=== PATIENT | female | born 1985 | race Caucasian/White ===

== ENCOUNTER → 2018-06-19 16:34 | Outpatient (CLI) | payer OTHER, SELFPAY ==
--- NOTE | 2018-06-19 16:40 | CT_ITS ---
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 2-D reformats were performed by the technologist. A radiation dose optimization technique was used for this scan. IV Contrast dosage and agent: None. COMPARISON: None FINDINGS: There is partial opacification of the right sphenoid sinus. The remaining paranasal sinuses appear clear. The mastoid air systems are well-developed bilaterally and show normal aeration. The external, middle, and inner ear structures are symmetrical and show no CT abnormality. No bony erosions, inflammatory change, or cholesteatoma. No effusion or middle ear otitis. Middle ear ossicles are preserved. The internal auditory canals are symmetrical. No developmental high riding jugular bulb or middle ear bony dehiscence. The right sigmoid dural sinus is larger than the left, not unusual, and this would not be symptomatic. CT/Orb Sella Post Fossa Ear w/o IMPRESSION: 1. Right sphenoid mild sinusitis. Otherwise negative exam. 2. No developmental high riding jugular bulb, bony dehiscence, or other abnormality seen. Individualized dose optimization techniques were used for this CT. at 0825 Reported and signed by: Antony Hewitt MD Electronically Signed: Antony Hewitt, at 8:24 EDT Tel , Service support ,
== END ==
PROVIDERS: Family Provider Family Medicine; PCP Family Medicine; Referring Provider Otolaryngology; Visit Provider Otolaryngology
DX: H93.A1 Pulsatile tinnitus, right ear (principal)
CPT/HCPCS: 70480

== ENCOUNTER 2019-09-08 04:58 | Inpatient (IN) | payer OTHER, SELFPAY ==
[2019-09-05 13:03] LABS: Probe Check PASS; Specimen Processing Control PASS
[2019-09-08] VITALS (21 sets, daily range): BP systolic 101–125; BP diastolic 55–78; PULSE 63–84; RESP 16–18; TEMP 36.1–36.8; O2SAT 96–100; BMI 43.1
[2019-09-08] MEDS: Lactated Ringers 1,000 ML 999 ML IV (05:20)
[2019-09-08 05:43] LABS: Absolute Neutrophil Count 6.8 X10^3/uL (2.0-7.7); Basophil# 0.03 X10^3/uL; Basophil% 0.3 % (0-1); Eosinophil# 0.23 X10^3/uL; Eosinophils% 2.3 % (0-5); Hematocrit 36.7 % (37-47); Hemoglobin 11.6 g/dL (12.0-15.0); Lymphocyte % 19.4 % (19-41); Mean Corp Hgb Conc 31.6 g/dL (32-36); Mean Corpuscular Hgb 26.9 pg (27.0-32.0); Mean Platelet Vol. 10.3 fl (6.2-12.0); Monocyte# 0.78 X10^3/uL; NRBC Flagged by Analyzer 0 % (0-5); Neutrophil % 69.5 % (47-70); Platelet Count 232 K/mm3 (150-450); RBC Distribution Width SD 43.1 fl (35.1-43.9); Red Blood Count 4.32 M/mm3 (4.2-5.4); White Blood Count 9.8 K/mm3 (4.4-11.0)
[2019-09-08] MEDS: Acetaminophen 500 MG Tablet 1000 MG PO ×3 (06:02→18:36)
[2019-09-08] MEDS: Lactated Ringers 1,000 ML 150 ML IV (06:30)
[2019-09-08] MEDS: Sodium Citrate/Citric Acid 30 ML UDC PO (06:59)
--- NOTE | 2019-09-08 07:11 | PCM.HPOB.BLA ---
- Problem List (1) History of delivery Status: Acute (2) 39 weeks gestation of Status: Acute History and Physical Date of Admission: 09/08/19 DATE OF SERVICE: September 03, 2019 ? PROBLEM:?History of prior section ? DIAGNOSIS:?Desires repeat section ? PAST SURGICAL HISTORY:? PAST SURGICAL HISTORY PAST SURGICAL HISTORY Procedure Laterality Date ? DEL W/ ANTE/POST CARE ? 12/29/12 ? OFFICE LEEP ? 04/25/2015 ? IRVIN 3 ? PAST MEDICAL HISTORY:? PAST MEDICAL HISTORY PAST MEDICAL HISTORY Diagnosis Date ? Abnormal Pap smear of cervix ? ? IRVIN I (cervical intraepithelial neoplasia I) 03/2013 ? Complication of anesthesia ? ? vomiting with Epidural ? History of chlamydia infection 2008 ? Miscarriage ? ? 2010 ? Pseudotumor cerebri ? ? SUBJECTIVE:?No ctx, vb, lof. Good FM. No NEGRETE, vision changes, upper abdominal pain.? ? SOCIAL HISTORY:? SOCIAL HISTORY Social History ? Tobacco Use ? Smoking status: Never Smoker ? Smokeless tobacco: Never Used Substance Use Topics ? Alcohol use: No ? Drug use: No ? Current Outpatient Medications on File Prior to Visit Medication Sig ? Breast Pump Use as directed ? Jrigsgbl-Lk-Nhf-Fe-FA ( VITAMIN) tab Take 1 tablet by mouth. ? EPINEPHrine (EPIPEN 2-JOJO) 0.3 mg/0.3 mL (1:1,000) PnIj Inject 0.3 mL intramuscularly as needed. No current facility-administered medications on file prior to visit.? ALLERGIES ALLERGIES Allergen Reactions ? Bee Sting ? Hives ? OBJECTIVE: ? VITALS:? BP 120/80 ? Wt 244 lb 6.4 oz (110.9 kg) ? LMP 10/08/2018 (Approximate) ? BMI 41.95 kg/m? ? HEENT: ?Normocephalic, atraumatic, Mucus membranes moist without lesions. ? NECK: ???Soft and Supple. ?No adenopathy , thyromegaly or bruits. ? SKIN: No lesions. ? CHEST: Clear to auscultation. ?No wheezes or rales. ?Good air exchange. ? HEART: Regular rate and rhythm ?No S3 or S4. ?No gallops or rubs. ? BACK: Nontender with no CVA tenderness. ? ABDOMEN: Soft, non-tender, non-distended, no masses, no hepatosplenomegaly. ? LOWER EXTREMITIES: There was no pitting edema, no palpable cords and no skin changes. ? ? ASSESSMENT: ? PLAN: 1) The rationale for the proposed surgery was discussed in addition to risks, benefits, and alternatives. ?General pre- and post-operative care was reviewed. ?Questions were answered. ?After discussion, the patient indicated a desire to proceed with the planned surgery. Discussed pseudotumor cerebri with Dr. Burton anesthesiologist certified professional ergonomist today. ? Baby boy's name is Micheal. Middle name is a surprise.? ? Kelsey Resendiz,?DO
[2019-09-08] MEDS: Cefazolin 2 GM in 0.9% Normal Saline 100 ML IV (07:22)
[2019-09-08] MEDS: Ketorolac 30 MG/ML Syringe IV ×3 (08:30→21:29)
--- NOTE | 2019-09-08 08:30 | OP.PCM_ITS ---
Problem List (1) History of delivery Status: Acute (2) 39 weeks gestation of Status: Acute (3) Obesity affecting Status: Acute Report of Operation Date of Procedure: 09/08/19 Pre-Operative Diagnosis: 39 week gestation, history prior section, desires repeat section, obesity affecting Post-Operative Diagnosis: As above Surgery/Procedure Performed:: RLTCS via pfannenstiel incision Description of Surgical Findings:: Minimal adhesive disease. Normal-appearing uterus, bilateral tubes, bilateral ovaries. Clear fluid. Normal-appearing placenta with a three-vessel cord. Type of Anesthesia:: Spinal Special Medications: None Specimen's removed: Placenta Drains: Tate Estimated Blood Loss (mL): 700 Description of Procedure: Pt was taken to the operating room where spinal anesthesia was found to be adequate. He was prepped and draped in the dorsal position with a leftward tilt. A Pfannenstiel skin incision was made using a scalpel and this was carried down to the underlying layer of fascia. The fascia was incised in the midline. The fascia was extended laterally using Hathaway scissors. The fascia was dissected off of the rectus muscles using a combination of sharp and blunt dissection. The rectus muscles were the midline. Peritoneum was entered sharply with good visualization bladder. The peritoneum was extended bluntly. A bladder flap was created. A low transverse incision was made on the uterus with a scalpel. Membranes were ruptured for clear fluid. Infant was noted to be in cephalic presentation and was delivered without any force or delay. was delivered atraumatically. The cord was clamped and cut after a 60 sec delay. Baby was handed off to the nursery staff. The placenta was removed with manual extraction. The uterus was cleared of all clot and debris. Uterus was exteriorized. The uterus was closed in a running locked fashion with Vicryl. The uterus was placed back into the abdomen. Hysterotomy was noted to be hemostatic. The fascia was closed in a running fashion with Vicryl. Subcutaneous space was irrigated and made hemostatic with Bovie cautery. The subcutaneous space was reapproximated. The skin was closed in subcuticular fashion. Dressing was placed. Instrument, sponge count, needle counts were correct. The patient was taken recovery in stable condition. Grafts/Implants Used: None - Complications None - Admit VTE Documentation VTE Present on Admission: No VTE Mechan Device Prophylaxis: SCD's Delivery Classification: Scheduled Final RED: 09/15/19 Gestational age: 39 Weeks and 0 Days Indications for : Repeat Elective Amniotic Membrane Rupture Type: Artificial Amniotic Fluid Description: Clear Drain: Tate to straight drain Cord Entanglement: None Gender: Male Delayed cord clamping: Yes Antibiotic Given: Ancef 2 grams IV x1 Pt instructed on risks of surgery: Bleeding, Infection, Need for Future C- Sections, Injury to surrounding structure(s) including bowel and bladder - Admit VTE Documentation VTE Pharm Prophylaxis ordered?: Yes
[2019-09-08] MEDS: Oxytocin 30 units/NS 500 ml 30 UNITS/500 ML IV.SOLN 167 UNITS IV (09:00)
[2019-09-08] MEDS: Lactated Ringers 1,000 ML 100 ML IV (10:52)
[2019-09-08] MEDS: Senna/Docusate Sodium 1 Tablet PO (18:37)
[2019-09-08] MEDS: 0.9% Saline Lock 10 ML Syringe IV (21:29)
[2019-09-08] MEDS: Enoxaparin 40 MG/0.4 ML Syringe SC (21:33)
[2019-09-09] VITALS: BP 103/56; PULSE 68; RESP 18; TEMP 36.6; O2SAT 98
[2019-09-09] MEDS: Acetaminophen 500 MG Tablet 1000 MG PO ×3 (00:41→13:38)
[2019-09-09 03:34] VITALS: BP 100/61; PULSE 74; RESP 18; TEMP 36.3; O2SAT 98
[2019-09-09] MEDS: Ketorolac 30 MG/ML Syringe IV (03:36)
[2019-09-09] MEDS: 0.9% Saline Lock 10 ML Syringe IV (03:37)
[2019-09-09 06:17] LABS: Hemoglobin 9.8 g/dL (12.0-15.0); Mean Corp Hgb Conc 32.7 g/dL (32-36); Mean Corpuscular Hgb 27.8 pg (27.0-32.0); Mean Platelet Vol. 10.3 fl (6.2-12.0); Platelet Count 197 K/mm3 (150-450); RBC Distribution Width CV 14.3 % (11.6-14.6); RBC Distribution Width SD 43.9 fl (35.1-43.9); Red Blood Count 3.53 M/mm3 (4.2-5.4)
[2019-09-09 08:10] VITALS: BP 108/61; PULSE 98; RESP 16; TEMP 36.8; O2SAT 98
[2019-09-09] MEDS: Ibuprofen 600 MG Tablet PO (09:43)
[2019-09-09] MEDS: Senna/Docusate Sodium 1 Tablet PO (09:44)
[2019-09-09] MEDS: Enoxaparin 40 MG/0.4 ML Syringe SC (09:44)
--- NOTE | 2019-09-09 11:10 | PCM.PN.OB ---
Patient Problems: Active and Suspected Problems (This Medical Record has been edited. Action required.) History of delivery (Acute) 39 weeks gestation of (Acute) Obesity affecting (Acute) Subjective: Doing well. Ambulating and voiding without difficulty. Denies lightheadedness, dizziness, chest pain, shortness of breath, leg pain. Tolerating regular diet without nausea or vomiting. Lochia normal. - Physical Exam Vitals/I&O's: Vital Signs Temp Pulse Resp BP Pulse Ox 98.2 F 98 16 108/61 98 09/09/19 08:10 09/09/19 08:10 09/09/19 08:10 09/09/19 08:10 09/09/19 08:10 Oxygen Delivery Method Room Air Weight: 243 lb 4.8 oz Body Mass Index (BMI) 43.1 Intake and Output for Last 24 Hours 09/07/19 09/08/19 09/09/19 23:59 23:59 23:59 Intake Total 5593.33 / 5593.33 Output Total 1660 / 1660 800 / 800 Balance 3933.33 / 3933.33 -800 / -800 General: Alert, No apparent distress HEENT: Atraumatic Abdomen: Soft, Non Tender, - - FF@U, dressing c/d/i Extremities: No Calf Tenderness, Edema Skin: No rashes Neurological: Neuro grossly intact Psych/Mental Status: Normal Affect, Appropriate Laboratory Results 09/09/19 06:00: WBC 9.0, RBC 3.53 L, Hgb 9.8 L, Hct 30.0 L, MCV 85.0, MCH 27.8, MCHC 32.7, RDW Std Deviation 43.9, RDW Coeff of Evelio 14.3, Plt Count 197, MPV 10.3 Current Medications Acetaminophen (Tylenol) 1,000 mg PO Q6 [facility] Last Admin: 09/09/19 06:46 Dose: 1,000 mg Documented by: Bisacodyl (Dulcolax) 10 mg RECTAL UD PRN PRN Reason: If no BM Enoxaparin Sodium (Lovenox) 40 mg SC BID [facility] Last Admin: 09/09/19 09:44 Dose: 40 mg Documented by: Hydrocortisone (Hytone) 1 applic TOPICAL TID PRN PRN; Protocol PRN Reason: Discomfort Lactated Ringer's () 1,000 mls @ 100 mls/hr IV .Q10H [facility] Last Admin: 09/09/19 05:59 Dose: Not Given Documented by: Naloxone HCl 4 mg/ Dextrose 504 mls @ 0 mls/hr IV .Q0M PRN; Protocol PRN Reason: Respiratory depression Ibuprofen (Motrin) 600 mg PO Q6H [facility] Last Admin: 09/09/19 09:43 Dose: 600 mg Documented by: Methylergonovine Maleate (Methergine) 0.2 mg IM X1 PRN PRN Reason: Uterine Atony Naloxone HCl (Narcan) 0.02 mg IV Q1M PRN PRN Reason: RR <10 and pt unresponsive Ondansetron HCl (Zofran) 4 mg IV Q4H PRN PRN PRN Reason: Nausea Oxycodone HCl (Oxyir) 5 - 10 mg PO Q4H PRN PRN PRN Reason: Pain Score 4-10/10 Prochlorperazine Edisylate (Compazine Iv) 10 mg IV Q6H PRN PRN PRN Reason: NAUSEA Senna/Docusate Sodium (Senokot-S, Nely-Colace) 0 tablet PO DAILY [facility] Last Admin: 09/09/19 09:44 Dose: 2 tablet Documented by: Simethicone (Mylicon) 80 mg PO HS PRN PRN Reason: Indigestion/stomach pain Last Admin: 09/08/19 20:00 Dose: 80 mg Documented by: Sodium Chloride () 5 - 15 ml IV UD PRN PRN Reason: SALINE FLUSH Last Admin: 09/09/19 03:37 Dose: 10 ml Documented by: Medical Necessity - Tobacco Use Smoking Status: Never smoker Assessment/Plan All Active Problems (This Medical Record has been edited. Action required.) History of delivery (Acute) 39 weeks gestation of (Acute) Obesity affecting (Acute) Postoperative day 1 from a repeat section. She is doing well and meeting all milestones to go home. She desires to go home today. Discharge instructions reviewed.
--- NOTE | 2019-09-09 11:14 | DCINST_ITS ---
Discharge Diet: No Restrictions Discharge Activity: May not drive while taking narcotic pain medications., May Shower May resume sexual activity in: 6 weeks Ice area for (Minutes): 15 Weight Bearing Status: Weight bearing as tolerated Lifting Restrictions: Do not lift anything heavier than baby for 4 weeks Call your doctor if your incision/area has: Sudden Increased Bleeding, Increased Pain/ Swelling, Increased Redness, Foul Smelling Discharge, Swelling at the incision site Call your doctor if you observe: Fever of 101 or Higher, Inability to urinate, Inability to have a bowel movement, Using more than one pad per hour, Shortness of breath, Dizziness, Chest pain, Increased palpitations (irregular heartbeat), Calf discomfort, Uncontrolled pain Suture Line Care: Avoid Pulling/Pushing, Avoid Pinching/Bending Remove Dressing in (days):: 6 Cleanse incision/area with: Soap & Water Additional Instructions: If you experience any of the following, contact your healthcare provider. * Bleeding that soaks a pad every hour for 2 hours * Fever 100.4 or higher * Unrelieved incision or abdominal pain * Swelling, redness, discharge or bleeding from your incision or episiotomy site * Your incision begins to separate * Problems urinating (including inability to urinate or burning while urinating). * Visual changes * Severe headache * Flu-like symptoms * Pain or redness in one of both of your breasts * Pain, warmth, tenderness or swelling in your legs, especially the calf area * Frequent nausea and vomiting * Symptoms of depression or anxiety If you experience any of the following, call 911 or go to the nearest Emergency Room. * Chest pain * Problems breathing * Seizure activity * Partial or complete paralysis of a body part, slurred speech, weakness or drooping of the face, or a sudden inability to walk or hold your balance Allergies/Adverse Reactions: Allergies No Known Allergies Allergy (Verified 09/08/19 06:03) Medications to take at Discharge Pnv No.103/Folic/Om3s/Fish Oil [ Gummies] 2 ea PO DAILY 09/08/19 Docusate Sodium [Colace] 100 mg PO BID PRN PRN #60 cap 09/09/19 Ferrous Sulfate 325 mg PO DAILY #60 tab 09/09/19 Ibuprofen [Motrin] 600 mg PO Q6H PRN PRN #30 tab 06/25/20 Oxycodone HCl/Acetaminophen [Percocet 5/325] 1 tablet PO Q6H PRN PRN 7 Days #20 tablet 09/09/19 The following prescriptions were given: Docusate Sodium [Colace] 100 mg PO BID PRN PRN #60 cap PRN Reason: Constipation Transmission Status: Pending to [facility] [facility] Ferrous Sulfate 325 mg PO DAILY #60 tab Transmission Status: Pending to [facility] [facility] Ibuprofen [Motrin] 600 mg PO Q6H PRN PRN #30 tab PRN Reason: Pain Score 1-10/10 Transmission Status: Pending to [facility] [facility] Oxycodone HCl/Acetaminophen [Percocet 5/325] 1 tablet PO Q6H PRN PRN 7 Days #20 tablet PRN Reason: Pain Score 6-10/10 Transmission Status: Received by [address] Follow-Up: Call to make an appointment with your doctor for an incision check in 1-2 weeks. You will also need a 6 week post- follow up appointment. Test results from this visit will be discussed in further detail at your follow- up appointment, if applicable. Please Follow Up With: Kelsey Resendiz DO When: 1 week and 6 weeks Primary Care Physician: Akash Roth DO [Primary Care Provider] -
[2019-09-09 14:00] VITALS: BP 111/71; PULSE 79; RESP 18; TEMP 36.7
== END 2019-09-09 14:18 | disposition home or self-care (01) | DRG 788 ==
PROVIDERS: Admitting Provider Obstetrics & Gynecology; PCP Family Medicine; Referring Provider Obstetrics & Gynecology; Visit Provider Obstetrics & Gynecology
PROC: 10D00Z1 Extraction of Products of Conception, Low, Open Approach (ICD-10-PCS; CPT 59514; principal; 2019-09-08 07:15)
DX: O34.211 Maternal care for low transverse scar from previous cesarean delivery (principal); O99.214 Obesity complicating childbirth; E66.9 Obesity, unspecified; Z3A.39 39 weeks gestation of pregnancy; Z37.0 Single live birth
CPT/HCPCS: 36415; 85025; 85027; 86850; 86900; 86901; 87635; 99218; J7120; A4216; G0378; U0003

== ENCOUNTER → 2024-09-27 | Outpatient (CLI) | payer OTHER, SELFPAY | END | disposition home or self-care (01) | LOC: LAB 09:19 | PROVIDERS: PCP Physician Assistant Medical; Referring Provider Otolaryngology; Visit Provider Otolaryngology | DX: T78.40XA Allergy, unspecified, initial encounter (principal) | CPT/HCPCS: 36415; 86003 ==